=== PATIENT | female | born 1990 | race African-American/Black ===

== ENCOUNTER 2020-11-09 08:36 | Emergency (ER) | payer OTHER, SELFPAY ==
--- NOTE | ~2020-11-09 | XR_ITS ---
EXAMINATION: XR foot LT 2V INDICATION: Left foot pain, possible foreign body TECHNIQUE: Two views of the left foot are obtained. COMPARISON: None available FINDINGS: No radiopaque foreign body is identified. There is no fracture, dislocation, or subluxation . The joint spaces are normal. IMPRESSION: 1. No radiopaque foreign body identified. Reviewed, dictated and finalized at location A.
[2020-11-09 08:46] VITALS: BP 137/74; PULSE 66; RESP 16; TEMP 36; O2SAT 99
--- NOTE | 2020-11-09 08:56 | ED.SKABFB ---
HPI - Skin/Abscess/Foreign Bdy General Chief complaint: Skin/Abscess/Foreign Body Stated complaint: Left Foot Pain Source: patient Mode of arrival: wheelchair Limitations: no limitations History of Present Illness HPI narrative: 30-year-old female presents to [facility] with complaints of pain and possible foreign body to the plantar aspect of her left foot since yesterday. Patient reports that she stepped on something pointy and has had pain to the area since. Patient reports that her tetanus shot is up-to-date within the past 5 years. Patient has been soaking her foot with little relief. Patient reports that she is having difficulty ambulating due to the pain in her foot. Location: L foot Relieving factors: none Associated symptoms: denies other symptoms Related Data Home Medications Medication Instructions Recorded Confirmed cholecalciferol (vitamin D3) 25 25 mcg PO DAILY 01/23/20 10/19/20 mcg (1,000 unit) capsule levocetirizine 5 mg tablet 5 mg PO DAILY 01/23/20 10/19/20 multivitamin 1 tablet PO DAILY 01/23/20 10/19/20 niacin 500 mg tablet 500 mg PO DAILY 01/23/20 10/19/20 Allergies Allergy/AdvReac Type Severity Reaction Status Date / Time DUST Allergy Sneezing Uncoded 11/09/20 08:39 MOLD Allergy Sneezing Uncoded 11/09/20 08:39 Review of Systems Constitutional: Constitutional: Denies chills, Denies fever(s) and Denies weakness Respiratory: Respiratory: Denies cough, Denies dyspnea and Denies wheezing Gastrointestinal: Gastrointestinal: Denies abdominal pain, Denies diarrhea, Denies nausea and Denies vomiting Musculoskeletal: Comments: pain to plantar aspect of left foot Integumentary/Breasts: Skin/Breast: Denies pruritus, Denies erythema and Denies rash PMFSH Past Medical History Medical History (Updated 11/09/20 @ 09:32 by Cookie Cameron APRN) Migraines Surgical History Surgical History (Updated 11/09/20 @ 08:58 by Cookie Cameron APRN) [place] teeth extracted [place] teeth extracted Family History Family History Father Hyperlipemia Social History Social History (Reviewed 11/09/20 @ 08:58 by BRIDGER Burch Alcohol intake: never Comments At time of signature, I agree with nursing past medical, surgical, social and family history. There is no relevant family history pertinent to the presenting complaint. Exam Const: General: no acute distress Nutritional Appearance: well nourished Neck: Neck: normal visual inspection Resp: Effort & Inspection: normal respiratory effort and not tachypneic Auscultation: clear to auscultation bilaterally Cardio: Rate: regular rate, not bradycardic and not tachycardic Rhythm: regular rhythm Back/Spine/Pelvis: Back: no CVA tenderness Skin: General skin exam: normal color Rashes: no rashes Wounds: no wounds Neuro: General: patient oriented x3, moves all extremities, no meningeal signs and no focal motor deficits Extrem: General: normal to inspection, full ROM, capillary refill normal, no joint enlargement, no cyanosis, no edema and other (Very small pinpoint erythematous area noted to plantar aspect of left foot ) Psych: Appearance: grossly normal Mental Status: mental status grossly normal Affect: normal affect Attitude: cooperative Thought content: Yes Normal thought content present Course Vital Signs Vital signs: Vital Signs Temperature 36.0 C L 11/09/20 08:46 Pulse Rate 66 11/09/20 08:46 Respiratory Rate 16 11/09/20 08:46 Blood Pressure 137/74 11/09/20 08:46 Pulse Oximetry 99 11/09/20 08:46 Temperature 36.0 C L 11/09/20 08:46 Pulse Rate 66 11/09/20 08:46 Respiratory Rate 16 11/09/20 08:46 Blood Pressure 137/74 11/09/20 08:46 Pulse Oximetry 99 11/09/20 08:46 MDM - Skin/Abscess/Foreign Bdy MDM Narrative Medical decision making narrative: Negative x-ray discussed with patient. Patient agrees to follow-up with primary care pr
== END 2020-11-09 09:34 | disposition home or self-care (01) ==
PROVIDERS: Emergency Provider Nurse Practitioner Family; PCP Family Medicine
DX: M79.672 Pain in left foot (principal)
CPT/HCPCS: 73620; 99213; G0463

== ENCOUNTER 2022-04-06 13:53 | Outpatient (CLI) | payer OTHER, SELFPAY ==
[2022-04-06 14:48] LABS: Strep Group A RT-PCR NOT DETECTED (Negative)
[2022-04-06 14:58] LABS: Influenza A QL RT-PCR Negative (Negative); Influenza B QL RT-PCR Negative (Negative); RSV RNA, RT-PCR Negative (Negative); SARS-CoV-2 RNA PCR Positive
== END 2022-04-06 13:54 | disposition home or self-care (01) ==
PROVIDERS: PCP Family Medicine; Visit Provider Family Medicine
DX: J02.9 Acute pharyngitis, unspecified (principal); R50.9 Fever, unspecified
CPT/HCPCS: 87637; 87651